=== PATIENT | female | born 1985 | race African-American/Black ===

== ENCOUNTER → 2021-09-25 | Day surgery (SDC) | payer OTHER ==
[~2021-09-25] VITALS: Ht 154.9 cm; Wt 86.2 kg
[~2021-09-25] MED LIST: ADDERALL 5 MG TA5 MG PO; FLONASE ALLER15.8 ML; KETOROLAC TROME10 MG PO; MAXALT10 MG PO; PROBIOTIC1 EAC1 PO; SINGULAIR10 MG PO; SUDAFED 24-HOU240 MG PO; XYZAL5 MG PO
[2021-09-25 08:30] LABS: HCG (URINE) SCREEN NEGATIVE (NEGATIVE)
[2021-09-25 08:45] LABS: HCT 39.4 % (37.0-47.0); HGB 13.1 g/dl (12.5-16.0); MCH 27.5 pg (25.0-31.0); MCHC 33.2 g/dL (32.0-36.0); MCV 82.8 fL (78.0-100.0); MPV 10.6 fL (6.0-9.5); RBC 4.76 M/uL (4.20-5.40); RDW 13.3 % (11.5-14.0); WBC 9.3 K/uL (4.0-10.5)
== END | disposition home or self-care (01) ==
LOC: FAS 08:04
PROVIDERS: Anesthesiology; Specialist
DX: T83.39XS Other mechanical complication of intrauterine contraceptive device, sequela (principal); Z79.899 Other long term (current) drug therapy; Z88.2 Allergy status to sulfonamides
CPT/HCPCS: 36415; 84703; J0690; J1885; J2250; J2405; J2704; J3010; J7120